=== PATIENT | male | born 1990 | race Caucasian/White ===

== ENCOUNTER 2024-06-13 16:28 | Emergency (ER) | payer OTHER, SELFPAY ==
--- OUTSIDE RECORDS SUMMARY | 2024-06-13 16:32 | XMS_ITS | Clinical Summary ---
Author Organization [facility] Address [place], [place] [address] Care Team Providers Care Grounds Restoration Specialist Name Role Phone [place], [place] Primary Care Provider [phone] Allergies No known active allergies Medications venlafaxine (EFFEXOR XR) 37.5 mg Cp24 Extended-Releas e capsule Take 1 capsule by mouth once daily with a meal. 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 Gender Identity Not on file Sexual Orientation Not on file Obstetrics History Last Filed Vital Signs Vital Sign Reading Time Taken Comments Blood Pressure 156/82 07/10/2019 5:41 PM BUSINESS ENTERPRISE OFFICER Pulse 85 07/10/2019 5:41 PM BUSINESS ENTERPRISE OFFICER Temperature 36.7 C (98 F) 07/10/2019 5:41 PM BUSINESS ENTERPRISE OFFICER Respiratory Rate 16 07/10/2019 5:41 PM BUSINESS ENTERPRISE OFFICER Oxygen Saturation 97% 07/10/2019 5:41 PM BUSINESS ENTERPRISE OFFICER Inhaled Oxygen Concentration - - Weight 95.3 kg (210 lb) 07/10/2019 5:41 PM BUSINESS ENTERPRISE OFFICER Height 173.4 cm (5' 8.25) 07/10/2019 5:41 PM CS T Body Mass Index 31.7 07/10/2019 5:41 PM BUSINESS ENTERPRISE OFFICER Plan of Treatment Not on file Care Teams Grounds Restoration Specialist Relationship Specialty Start Date End Date [place], [place] [address] [place] [id number] PCP - General 07/10/19
--- OUTSIDE RECORDS SUMMARY | 2024-06-13 16:32 | XMS_ITS | Continuity of Care Document ---
Author Organization [facility] Address [address] [place] [id number] Problems Condition ICD9 code ICD10 code SNOMED code Start Date End Date S tatus Encounter for screening for other metabolic disorders Z13.228 Results No Results Allergies, adverse reactions, alerts No known allergies and adverse reactions Medications No administered medications reported Vital Signs No vital signs reported Social History No smoking Hx information available
[2024-06-13 16:33] VITALS: BP 130/80; PULSE 98; RESP 18; TEMP 36.9; O2SAT 96; BMI 30.4
--- NOTE | 2024-06-13 16:49 | ED_ITS ---
HPI - General Adult General Date Seen: 06/13/24 Chief complaint: Dental/Oral/Mouth Injury/Pain Stated complaint: [facility]to[facility] Time Seen by Provider: 06/13/24 16:33 History of Present Illness HPI narrative: Patient is a 34-year-old male who presents for evaluation of right upper molar pain which he says has been there for about a week. He feels like that side of his face is puffy. [facility] and [facility] he needed [facility] come [facility] to be seen prior to seeing a dentist. Denies fevers or systemic symptoms. He does note that he has a cracked tooth in that area. Does not have a usual dentist. Related Data Home Medications ?Medication ?Instructions ?Recorded ?Confirmed metformin 1,000 mg 24 hr 1,000 mg PO DAILY 06/13/24 06/13/24 tablet,extended release (gastric reten.) (Glumetza) Allergies Allergy/AdvReac Type Severity Reaction Status Date / Time No Known Allergies Allergy Verified 06/13/24 16:40 Review of Systems Status of ROS: Reports: 6 or more systems reviewed and unremarkable except as noted in History and below [facility] Social History Smoking Status: Current every day smoker What tobacco products do you use: cigarettes Do you use any of these nicotine containing products: None How often do you have a drink containing alcohol: never AUDIT-C Alcohol total score: 0 Non-prescribed substance use: denies use Exam Narrative: Exam Narrative: Vital signs reviewed, normal. In general, alert, well-appearing young man. Head: Normocephalic, atraumatic. Eyes: Sclera clear. ENT: Dentition is largely intact. He does have a crack in the tooth where he indicates he is having pain, right upper most posterior molar. There is no surrounding edema or fluctuance, no drainage. I do not notice significant asymmetry from 1 side of the face to the other, there is no erythema and no induration. Neck: Supple without adenopathy. Const: Vital Signs, click to edit/add: Vital Signs - 24 hr 06/13/24 16:33 Temperature 98.5 F Pulse Rate [Left P ulse Oximeter] 98 Respiratory Rate 18 Blood Pressure [Ri ght Upper Arm] 130/80 Pulse Oximetry 96 Oxygen Delivery Me thod Room Air Documenting provider has reviewed patient's vital signs: yes Course Course ED Course: Reviewed with him that at this time I do not see any kind of abscess that we could drain nor anything that indicates a significant facial cellulitis. Will put him on antibiotics but discussed that dental follow-up is very important even if he is feeling better to address the underlying cause. Ibuprofen plus Tylenol 3 times daily for pain. Return for worsening symptoms such as significant swelling, fevers etcetera. Vital Signs Vital signs: Initial Vital Signs Temperature 98.5 F 06/13/24 16:33 Temperature Source Temporal Artery Scan 06/13/24 16:33 Pulse Rate 98 06/13/24 16:33 Respiratory Rate 18 06/13/24 16:33 Blood Pressure 130/80 06/13/24 16:33 Blood Pressure Mean 96 06/13/24 16:33 Blood Pressure Position Sitting 06/13/24 16:33 Pulse Oximetry 96 06/13/24 16:33 Oxygen Delivery Method Room Air 06/13/24 16:33 Vital Signs Temperature 98.5 F 06/13/24 16:33 Pulse Rate 98 06/13/24 16:33 Respiratory Rate 18 06/13/24 16:33 Blood Pressure 130/80 06/13/24 16:33 Pulse Oximetry 96 06/13/24 16:33 Oxygen Delivery Method Room Air 06/13/24 16:33 Temperature 98.5 F 06/13/24 16:33 Pulse Rate 98 06/13/24 16:33 Respiratory Rate 18 06/13/24 16:33 Blood Pressure 130/80 06/13/24 16:33 Pulse Oximetry 96 06/13/24 16:33 Oxygen Delivery Method Room Air 06/13/24 16:33 Discharge Plan Discharge Clinical Impression: Toothache Patient Disposition: Home, Self-Care Condition: Stable Instructions: Toothache (ED) Additional Instructions: Take the amoxicillin as prescribed. For pain, I would recommend a combination of Tylenol, 1000 mg plus ibuprofen, 400 mg 3 times daily with food. Dental follow-up will be important to address the underlying cause for your pain. If you have fevers or worsening swelling/pain, return to the ER for reevaluation. Prescriptions: No Action metformin [Glumetza] 1,000 mg tablet,ER afia.retention 24 hr 1,000 mg PO DAILY Stand Alone Forms: Certess Info Instructions
--- OUTSIDE RECORDS SUMMARY | 2024-06-13 17:15 | XMS_ITS | Clinical Summary ---
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 Gender Identity Not on file Sexual Orientation Not on file Obstetrics History Last Filed Vital Signs Vital Sign Reading Time Taken Comments Blood Pressure 156/82 07/10/2019 5:41 PM OBSTETRICAL NURSE Pulse 85 07/10/2019 5:41 PM OBSTETRICAL NURSE Temperature 36.7 C (98 F) 07/10/2019 5:41 PM OBSTETRICAL NURSE Respiratory Rate 16 07/10/2019 5:41 PM OBSTETRICAL NURSE Oxygen Saturation 97% 07/10/2019 5:41 PM OBSTETRICAL NURSE Inhaled Oxygen Concentration - - Weight 95.3 kg (210 lb) 07/10/2019 5:41 PM OBSTETRICAL NURSE Height 173.4 cm (5' 8.25) 07/10/2019 5:41 PM CS T Body Mass Index 31.7 07/10/2019 5:41 PM OBSTETRICAL NURSE Plan of Treatment Not on file Care Teams Electrician Manager Relationship Specialty Start Date End Date [place], [place] [address] [place] [id number] PCP - General 07/10/19
== END 2024-06-13 17:12 | disposition home or self-care (01) ==
PROVIDERS: Emergency Provider Emergency Medicine
DX: K08.89 Other specified disorders of teeth and supporting structures (principal)
CPT/HCPCS: 99283